=== PATIENT | male | born 1965 | race Caucasian/White ===

== ENCOUNTER 2016-08-26 14:36 | Emergency (ER) | payer OTHER ==
[2016-08-26 15:12] LABS: BASOPHIL 0.8 % (0-2); EOSINOPHIL 2.2 % (0-5); HCT 39.2 % (42.0-52.0); HGB 13.9 g/dl (13.2-18.0); LYMPHOCYTE 23.4 % (15-48); MCH 36.2 pg (25.0-31.0); MCHC 35.5 g/dL (32.0-36.0); MCV 102.1 fL (78.0-100.0); MONOCYTE 9.8 % (0-12); MPV 9.3 fL (6.0-9.5); NEUTROPHIL 63.8 % (41-80); PLT 211 K/uL (150-400); RBC 3.84 M/uL (4.70-6.00); RDW 12.9 % (11.5-14.0); WBC 6.3 K/uL (4.0-10.5)
[2016-08-26 15:20] LABS: INR 0.92 (0.9-1.2)
[2016-08-26 15:21] LABS: PTT 24.7 SECONDS (23.2-31.4)
[2016-08-26 15:24] LABS: ALBUMIN 4.3 g/dL (3.5-5.0); BILIRUBIN - TOTAL 0.7 mg/dL (0.1-1.0); GLOBULIN (CALCULATION) 2.4 g/dL (2.2-4.2); MAGNESIUM 1.85 mg/dL (1.40-2.10); POTASSIUM 4.1 mmol/L (3.5-5.1); TOTAL PROTEIN 6.7 g/dL (6.4-8.3)
[2016-08-26 15:27] LABS: CKMB 1.55 ng/mL (0.97-4.94); MYOGLOBIN 33 ng/mL (26-65); PRO-BNP 108 pg/mL (0-125); TROPONIN T < 0.010 ng/mL
== END 2016-08-26 19:14 | disposition home or self-care (01) ==
LOC: FER 14:36
PROVIDERS: Emergency Medicine
DX: M54.6 Pain in thoracic spine (principal); G89.29 Other chronic pain; R10.816 Epigastric abdominal tenderness; I10 Essential (primary) hypertension; Z79.899 Other long term (current) drug therapy; Z87.19 Personal history of other diseases of the digestive system
CPT/HCPCS: 36415; 71020; 72072; 80053; 82550; 82553; 83690; 83735; 83874; 83880; 84484; 85025; 85610; 85730; 93005; C9113; J2270

== ENCOUNTER 2020-11-20 15:35 | Emergency (ER) | payer OTHER ==
[~2020-11-20 15:35] MED LIST: CIPRO500 MG PO; FLOMAX0.4 MG PO
[2020-11-20] MEDS ORDERED: IBUPROFEN800 MG PO (18:14)
[2020-11-20] MEDS ORDERED: 8 HOUR650 MG PO (18:14)
== END 2020-11-20 18:22 | disposition home or self-care (01) ==
LOC: FER 15:35
DX: S90.31XA Contusion of right foot, initial encounter (principal); W19.XXXA Unspecified fall, initial encounter; Y92.149 Unspecified place in prison as the place of occurrence of the external cause; Y93.39 Activity, other involving climbing, rappelling and jumping off
CPT/HCPCS: 73630